=== PATIENT | female | born 2000 | race Asian ===

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

== ENCOUNTER 2022-04-29 09:54 | Emergency (ER) | payer OTHER ==
[~2022-04-29] VITALS: Ht 160 cm; Wt 113.4 kg
[2022-04-29 12:10] VITALS: BP 143/75; TEMP 98.4
== END 2022-04-29 12:10 | disposition home or self-care (01) ==
LOC: ED 09:54
DX: J06.9 Acute upper respiratory infection, unspecified (principal); R05.8 Other specified cough
CPT/HCPCS: 81025; 96372; 99283; J1100

== ENCOUNTER 2022-10-29 09:32 | Emergency (ER) | payer OTHER ==
[~2022-10-29] VITALS: Ht 160 cm; Wt 134.8 kg
[2022-10-29 10:10] VITALS: BP 131/81; TEMP 97.9
== END 2022-10-29 10:10 | disposition home or self-care (01) ==
LOC: ED 09:32
DX: L30.9 Dermatitis, unspecified (principal)
CPT/HCPCS: 99282